=== PATIENT | male | born 1990 | race African-American/Black ===

== ENCOUNTER 2018-09-04 12:16 | Emergency (ER) | payer OTHER ==
[2018-09-04 12:22] VITALS: BP 137/89
--- NOTE | 2018-09-04 13:23 | XRAY Report ---
Reason: LEFT KNEE PAIN Procedure Date: 09/04/2018 Accession Number: [id number] / [id number] Procedure: XR - Knee 4 View LT CPT Code: FULL RESULT: EXAM: LEFT KNEE RADIOGRAPHY EXAM DATE: 09/04/2018 01:07 PM. CLINICAL HISTORY: LEFT KNEE PAIN. COMPARISON: None. TECHNIQUE: 3 views. FINDINGS: Bones: Normal. No fractures or bone lesions. Joints: Normal. No effusion. No subluxations. Soft Tissues: Normal. No soft tissue swelling. IMPRESSION: No acute displaced fracture or malalignment. RADIA
--- NOTE | 2018-09-04 13:50 | ED Physician Documentation ---
PD HPI LOWER EXT INJURY - Stated complaint Stated Complaint: LEFT LEG/KNEE PX - Chief complaint Chief Complaint: Ext Problem - History obtained from History obtained from: Patient - History of Present Illness PD HPI LOW EXT INJURY LOCATION: Left, Knee Type of injury: Twist Where injury occurred: Home Timing - onset: How many hours ago (1) Timing - details: Still present Worsened by: Moving, Other (weight bearing) Similar symptoms before: No diagnosis - Additional information Additional information: The patient is a 27-year-old male who twisted his left knee about 1 hour prior to arrival when he stood up too quickly from a recliner. He presents now with continued pain which is worse with movement or weightbearing. He denies history of similar symptoms in the past. Review of Systems Constitutional: denies: Fever Skin: denies: Rash Musculoskeletal: reports: Joint pain (Left knee.), Pain with weight bearing. de nies: Back pain Neurologic: denies: Focal weakness, Numbness PD PAST MEDICAL HISTORY - Past Medical History Past Medical History: No Endocrine/Autoimmune: None - Past Surgical History Past Surgical History: No - Present Medications Home Medications: Ambulatory Orders Medication Instructions Recorded Confirmed No Known Home Medications 09/04/18 09/04/18 - Allergies Allergies/Adverse Reactions: Allergies Allergy/AdvReac Type Severity Reaction Status Date / Time No Known Drug Allergies Allergy Verified 09/04/18 12:22 - Social History Does the pt smoke?: No Smoking Status: Never smoker Does the pt drink ETOH?: Yes Does the pt have substance abuse?: No Substance Use and Type: Marijuana - Immunizations Immunizations are current?: Yes - POLST Patient has POLST: No PD ED PE NORMAL - Vitals Vital signs reviewed: Yes (Borderline hypertension initially.) - General General: Alert and oriented X 3, Well developed/nourished, Other (Overweight.) - HEENT HEENT: Atraumatic - Respiratory Respiratory: No respiratory distress - Derm Derm: No rash - Extremities Extremities: No edema, No calf tenderness / cord, Other (There is tenderness to palpation in the popliteal and lateral aspect of the left knee. There is no tenderness over the prepatellar or medial aspect of the knee. There is no ligamentous instability detected. Distal neurovascular is intact.) - Neuro Neuro: Alert and oriented X 3, No motor deficit, No sensory deficit Results - Vitals Vitals: Vital Signs - 24 hr 09/04/18 12:20 Temperature 36.2 C L Heart Rate 71 Respiratory 18 Rate Blood Pressure 137/89 H O2 Saturation 97 Oxygen O2 Source Room air - Rads (name of study) left knee Radiology: Prelim report reviewed, EMP read contemporaneously, See rad report (No acute fracture or dislocation or malalignment.) PD MEDICAL DECISION MAKING - ED course Complexity details: reviewed results, re-evaluated patient, considered differential, d/w patient, d/w family ED course: The patient's presentation is most consistent with a sprain of the left knee. X-ray reveals no evidence of bony abnormality or significant joint effusion. Treatment in the emergency department included administration of ibuprofen 800 mg orally, and application of a knee immobilizer. 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 Departure - Departure Disposition: 01 Home, Self Care Clinical Impression: Strain of left knee Qualifiers: Encounter type: initial encounter Qualified Code(s): S86.912A - Strain of unspecified muscle(s) and tendon(s) at lower leg level, left leg, initial encounter Condition: Stable Instructions: ED Sprain Knee Follow-Up: [facility] [Provider Group] Comments: Apply ice pack to your left knee intermittently for the next several days. Use the knee immobilizer if it provides comfort. You can take ibuprofen, up to 800 mg 3 times daily for its anti-inflammatory effect. Let pain be your guide to activity level. Follow-up with your primary physician within 2 weeks. Call to schedule an appointment. Return to the emergency department if you develop increasing pain or swelling of your knee, or otherwise worsening times.
[2018-09-04] MEDS ORDERED: IBUPROFEN 800 MG TABLET PO STA (13:52)
== END 2018-09-04 14:08 | disposition home or self-care (01) ==
LOC: ED 12:16
DX: S86.912A Strain of unspecified muscle(s) and tendon(s) at lower leg level, left leg, initial encounter (principal); X50.1XXA Overexertion from prolonged static or awkward postures, initial encounter; Y92.009 Unspecified place in unspecified non-institutional (private) residence as the place of occurrence of the external cause
CPT/HCPCS: 73564; 99282; 99283; A9270